=== PATIENT | female | born 1975 | race Caucasian/White ===

== ENCOUNTER 2023-01-19 08:26 | Day surgery (SDC) | payer BC ==
[2023-01-19] MEDS ORDERED: Lidocaine 2% 5 ML SDV IV ONE (08:27)
[2023-01-19] MEDS ORDERED: Propofol 200 MG/20 ML SDV IV ONE (08:27)
[2023-01-19] MEDS ORDERED: Sodium Chloride 0.9% 10 ML Syringe FLUSH PRN (08:30)
[2023-01-19] MEDS ORDERED: Lactated Ringers 1,000 ML IV SCH (08:30)
[2023-01-19] MEDS ORDERED: Simethicone Drops 40 MG/0.6 ML 30 ML Bottle PO ONE (10:25)
== END 2023-01-19 11:39 | disposition home or self-care (01) ==
LOC: FB.SDS 08:26
PROVIDERS: ATTEND Surgery
DX: Z12.11 Encounter for screening for malignant neoplasm of colon (principal); Q43.8 Other specified congenital malformations of intestine; E03.9 Hypothyroidism, unspecified; Z79.890 Hormone replacement therapy; Z79.899 Other long term (current) drug therapy; Z91.040 Latex allergy status
CPT/HCPCS: 00812; 45378; A9270; J2704; J7120